=== PATIENT | female | born 1985 | race Caucasian/White ===

== ENCOUNTER → 2021-11-24 07:32 | Outpatient (CLI) | payer OTHER, SELFPAY ==
[2021-11-24 13:56] LABS: Influenza Control Positive
[2021-11-24 22:40] LABS: SARS-CoV-2 RNA PCR Positive
== END ==
PROVIDERS: PCP Family Medicine; Visit Provider Physician Assistant
DX: U07.1 COVID-19 (principal); R51.9 Headache, unspecified; R05.9 Cough, unspecified; R68.89 Other general symptoms and signs
CPT/HCPCS: 87804; C9803; U0003; U0005

== ENCOUNTER 2023-09-14 18:42 | Emergency (ER) | payer BC, SELFPAY ==
[2023-09-14 18:53] VITALS: BP 125/79; PULSE 70; RESP 16; TEMP 36.3; O2SAT 100
--- NOTE | 2023-09-14 18:54 | ED.EAR ---
HPI - Ear Problem General Chief complaint: Ear Stated complaint: Ear clogged Time Seen by Provider: 09/14/23 18:55 Source: patient, RN notes reviewed and old records reviewed Mode of arrival: ambulatory Limitations: no limitations History of Present Illness HPI Narrative: 37-year-old female with a foreign body in left ear since Friday, 4 days. States she was using 1 of those ear wax remover that is connected to your phone, came off and is In her left ear. No decreased hearing. No dizziness. No ear pain just feels like there is something in it. Has been trying to flush it with peroxide with no relief Related Data Allergies Allergy/AdvReac Type Severity Reaction Status Date / Time No Known Allergies Allergy Unverified 05/08/23 09:45 Review of Systems Review of Systems: All systems reviewed & are unremarkable except as noted in HPI and below Constitutional: Constitutional: Reports no additional constitutional complaints Eyes: Eyes: Reports no additional eye complaints ENT: Reports as per HPI and Reports other ( foreign body left ear) Cardiovascular: Cardiovascular: Reports no additional cardiovascular complaints, Denies chest pain and Denies dyspnea Respiratory: Respiratory: Reports no additional respiratory complaints, Denies chest congestion, Denies cough and Denies dyspnea Gastrointestinal: Gastrointestinal: Reports no additional gastrointestinal complaints, Denies abdominal pain, Denies nausea and Denies vomiting Musculoskeletal: Musculoskeletal: Reports no additional musculoskeletal complaints Integumentary/Breasts: Skin/Breast: Reports system reviewed and no additional complaints, except as docu Neurologic: Reports system reviewed and no additional complaints, except as documented Psychiatric: Psychiatric: Reports no additional psychiatric complaints Allergic/Immunologic: Allergic/Immunologic: Reports no additional allergic/immunologic complaints [facility] Past Medical History Medical History Dizziness Social History Social History Smoking status: Never smoker Second hand tobacco smoke exposure: No Alcohol intake: never Substance use: never Substance use type: does not use Living arrangements: with family Occupation/Education: occupation Gender identity (if verbalized by the patient): Female Sexual Orientation (if Verbalized by the Patient): Straight or Heterosexual Comments At the time of my signature, I reviewed and agree with the nursing past medical, surgical, social, and family history. There is no relevant family history pertinent to the patient complaint. Exam Const: General: cooperative, healthy appearing, comfortable, no acute distress, well developed, alert and well nourished Nutritional Appearance: well nourished Orientation/consciousness: patient oriented x3 Limitations: no limitations HENMT: Head: normal to inspection Ears: hearing grossly normal bilaterally, external ears normal, TM's normal bilaterally, mastoids normal, no periauricular adenopathy and Abnormal EAC present foreign body on the left Face/Nose/Sinus: Normal external nose present, Normal nares present, Normal nasal mucous membranes and turbinates present, normal facial exam and face symmetric Face and sinus: normal facial exam and face symmetric Mouth: Yes Normal oral and palatal mucosa present, Yes lip normal and Yes moist mucous membranes Throat: posterior oropharynx normal and uvula midline Eyes: General: appearance normal, both eyes and all related structures Alignment and Position: alignment normal Periorbital: periorbital findings normal Pupils: Equal, round and reactive pupils present EOM: EOMs intact bilaterally Neck: Neck: normal visual inspection, full ROM, no lymphadenopathy and no meningeal signs Chest: Chest palpation & inspection: normal inspection of the chest Resp: Effort & In
== END 2023-09-14 19:05 | disposition home or self-care (01) ==
PROVIDERS: Emergency Provider Nurse Practitioner; PCP Family Medicine
DX: T16.2XXA Foreign body in left ear, initial encounter (principal); W44.B0XA Plastic object unspecified, entering into or through a natural orifice, initial encounter
CPT/HCPCS: 69200; 99212; G0463

== ENCOUNTER 2024-03-30 11:13 | Observation (INO) | payer BC, SELFPAY ==
--- NOTE | ~2024-03-30 | CT_ITS ---
EXAMINATION: CT abdomen pelvis w con DATE: 03/30/2024 13:22 INDICATION: Left lower quadrant abdominal pain TECHNIQUE: Computed tomography (CT) of the abdomen and pelvis was performed with 100 mL Omnipaque-350 intravenous contrast. Automated exposure control and iterative reconstruction technique were employe d. The dose-length product was 760.09 mGy-cm. COMPARISON: None FINDINGS: Lung bases are clear. Heart size is normal. No pericardial or pleural effusion. Liver, gallbladder, s pleen, pancreas, bilateral adrenal glands and kidneys are normal. There is fluid throughout the colon consistent with diarrhea. There is wall thickening at the sigmoid colon most prominent at the midpor tion of the sigmoid colon where there are a few foci of extraluminal gas in the sigmoid mesentery whi ch could be due to focal colitis or more likely diverticulitis with microperforation. No abscess or m ore remote free intraperitoneal gas. Small bowel and appendix are normal. Bladder, anteverted uterus and left adnexa are unremarkable. 1.6 cm peripherally enhancing right ovarian likely corpus luteum cy st. No pathologically enlarged abdominal or pelvic lymphadenopathy. Mild lower thoracic spondylosis. IMPRESSION: 1. Diverticulitis versus less likely focal sigmoid colitis with microperforation and minimal amount o f extraluminal gas in the immediately adjacent sigmoid mesentery. If not recently performed. would re commend follow-up colonoscopy when clinically improved to exclude yet further less likely perforated colon cancer. Reviewed, dictated and finalized at location B. IMPRESSION: 1. Diverticulitis versus less likely focal sigmoid colitis with microperforatio n and minimal amount of extraluminal gas in the immediately adjacent sigmoid me sentery. If not recently performed. would recommend follow-up colonoscopy when clinically improved to exclude yet further less likely perforated colon cancer.
[2024-03-30 11:48] LABS: Basophils Percent Auto 0.2 % (0.2-1.2); Hematocrit 42.5 % (37.0-47.0); Hemoglobin 13.7 g/dL (12.0-15.0); Immature Granulocyte Absolute 0.13 K/mm3 (0.00-0.031); Immature Granulocyte Percent A 0.6 % (0-0.5); Lymphocytes Percent Auto 4.1 % (18.3-44.2); Mean Corpuscular HGB Conc 32.2 g/dl (32-36); Mean Corpuscular Hemoglobin 29.7 pg (26-34); Mean Platelet Volume 11.6 fl (7.4-10.4); Monocytes Absolute Auto 1.8 K/mm3 (0.1-0.6); Monocytes Percent Auto 8.3 % (2.6-8.5); Neutrophils Absolute Auto 18.9 K/mm3 (1.3-6.7); Neutrophils Percent Auto 86.8 % (45.5-73.1); Platelet Count Result 244 k/mm3 (150-375); Red Blood Count 4.62 M/mm3 (4.2-5.4); Red Cell Distribution Width 13.5 % (11.5-14.5); White Blood Count 21.8 K/mm3 (4.5-10.0)
[2024-03-30 12:07] LABS: Alanine Aminotransferase 49 U/L (6-35); Albumin Level 4.3 g/dL (3.5-5.1); Alkaline Phosphatase 94 U/L (38-126); Anion Gap 10 mmol/L (4-12); Aspartate Amino Transferase 29 U/L (14-36); Bilirubin,Total 0.9 mg/dL (0.2-1.3); Blood Urea Nitrogen 12 mg/dL (7-17); Calcium 9.5 mg/dL (8.4-10.2); Carbon Dioxide 22 mmol/L (22-30); Chloride 105 mmol/L (98-107); Estimated CRCL calculation 102 ml/min; Estimated Glomerular Filt Rate > 60; Glucose 132 mg/dL (65-110); Lipase 32 U/L (23-300); Potassium 3.7 mmol/L (3.4-5.0); Sodium 137 mmol/L (137-145)
[2024-03-30 12:22] LABS: Appearance Urine Turbid (Clear); Bacteria Urine 4+ /hpf; Bilirubin Urine 2+ (Negative); Blood Urine 1+ (Negative); Color Urine Dark Yellow (Yellow); Glucose Urine UA Negative (Negative); Ketones Urine 1+ mg/dL (Negative); Leukocyte Esterase Ur Trace LEU/UL (Negative); Nitrate Urine Negative (Negative); Non Pathogenic Casts 0-2; Protein Urine 1+ mg/dL (Negative); Specific Grav Ur 1.027 (1.001-1.035); Squamous Epithelial Cell Urine Many /hpf (Few); pH Urine 5.5 (5.0-9.0)
--- NOTE | 2024-03-30 12:42 | ED.ABDPAIN ---
HPI - Abdominal Pain General Chief Complaint: Abdominal Pain Stated Complaint: abd pain Time Seen by Provider: 03/30/24 12:12 History of Present Illness HPI narrative: 38-year-old female presents emergency department for evaluation of lower abdominal pain. Patient states that she was having some increased left lower quadrant and suprapubic abdominal pain yesterday. Patient reports decreased bowel movements. Patient states he did take some stool softener and had a small amount of stool today. Patient denies any prior history of abdominal surgeries. Related Data Home Medications Medication Instructions Recorded Confirmed sertraline 50 mg tablet 100 mg PO DAILY 03/30/24 03/30/24 Allergies Allergy/AdvReac Type Severity Reaction Status Date / Time No Known Allergies Allergy Verified 03/30/24 11:30 Review of Systems Review of Systems: All systems reviewed & are unremarkable except as noted in HPI and below PMFSH Past Medical History Medical History Depression with anxiety Dizziness Surgical History Surgical History No pertinent past surgical history Family History Family History (Updated 03/30/24 @ 15:07 by LIMA Sevilla) Mother Diverticulitis Other Heart disease Social History Social History Social History: Single Smoking status: Never smoker Second hand tobacco smoke exposure: No Alcohol intake: never Substance use: never Substance use type: does not use Do You Feel Safe in your Home?: Yes Lack of Transportation: No Lack of Food: Never True Current Housing: I Have Housing Concerned About Future Housing: No Difficulty Paying Gas/Electric Bills: No Difficulty Paying for Meds: No Currently Unemployed: No Education: High School Diploma/GED Difficulty w/ Childcare or Family Care: No Living arrangements: with family Occupation/Education: occupation 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 HEAD: normocephalic, atraumatic. EYES: PERRLA/EOMI, conjunctivae clear. NOSE: Normal no drainage EARS:TMS clear with good light reflex. THROAT: Pharynx clear, no exudate. NECK: Supple. No adenopathy, no masses. RESPIRATORY: Airway patent, respirations nonlabored. Clear to auscultation bilaterally, no rales, rhonchi, wheezing. CARDIOVASCULAR: Regular rate and rhythm without murmurs rubs or gallops. ABDOMINAL: Left lower quadrant tenderness to palpation MUSCULOSKELETAL: Moves all extremities. Strength/ROM intact, No edema, No calf tenderness. NEURO: Alert. Cranial nerves II through XII intact. Good gait. Good coordination SKIN: Warm, dry. Normal Color Course Vital Signs Vital signs: Vital Signs Temperature 99.2 F 03/30/24 15:23 Pulse Rate 99 03/30/24 15:23 Respiratory Rate 20 03/30/24 15:23 Blood Pressure 127/73 03/30/24 15:23 Pulse Oximetry 99 03/30/24 15:23 Temperature 99.2 F 03/30/24 15:23 Pulse Rate 99 03/30/24 15:23 Respiratory Rate 20 03/30/24 15:23 Blood Pressure 127/73 03/30/24 15:23 Pulse Oximetry 99 03/30/24 15:23 Oxygen Delivery Room Air 03/30/24 16:00 MDM - Abdominal Pain MDM Narrative Medical decision making narrative: 38-year-old female present to the emergency department for evaluation of lower abdominal pain. Patient is afebrile but does have a leukocytosis of 21.8 a stable hemoglobin of 13.7. No significant electrolyte abnormalities on the patient's CMP patient also has a normal lipase. Urine culture is pending. CT was concerning for diverticulitis with microperforation
[2024-03-30 12:43] LABS: Add Urine Microscopic? YES
[2024-03-30] MEDS: SODIUM CHLORIDE 0.9% IV 1,000 ML 999 ML IV CONT (12:59)
--- NOTE | 2024-03-30 14:33 | PM.IMHP ---
H&P: HPI History of Present Illness Date/Time: 03/30/24 14:33 Chief Complaint: Abdominal pain Narrative: This is a 38 year old woman who presented to the ER with complaints of abdominal pain x 1 day. She woke up yesterday with LLQ pain. She thought she was constipated as the pain was initially mild. She took a stool softener and had a bowel movement today without relief. Her pain has progressively became more severe over the past 24 hours and she decided to come to the ER for evaluation. Workup showed leukocytosis with WBC count 21,000. CT abdomen/pelvis showed sigmoid diverticulitis vs colitis with microperforation. The ED provider consulted our office and she is now seen in the ER. Vital signs stable and afebrile. No previous abdominal surgeries. Denies history of diverticulitis or colonoscopy. She has family history of diverticulitis in her mother. No family history of colorectal cancer. Review of Systems Review of Systems: All systems reviewed & are unremarkable except as noted in HPI and below PMFSH Past Medical History Medical History Depression with anxiety Dizziness Surgical History Surgical History No pertinent past surgical history Family History Family History (Updated 03/30/24 @ 15:07 by LIMA Sevilla) Mother Diverticulitis Other Heart disease Social History Social History Social History: Single Smoking status: Never smoker Second hand tobacco smoke exposure: No Alcohol intake: never Substance use: never Substance use type: does not use Do You Feel Safe in your Home?: Yes Lack of Transportation: No Lack of Food: Never True Current Housing: I Have Housing Concerned About Future Housing: No Difficulty Paying Gas/Electric Bills: No Difficulty Paying for Meds: No Currently Unemployed: No Education: Don't Know Difficulty w/ Childcare or Family Care: No Living arrangements: with family Occupation/Education: occupation 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 Gender identity (if verbalized by the patient): Female Sexual Orientation (if Verbalized by the Patient): Straight or Heterosexual Meds Home Medications and Allergies Home Medications Medication Instructions Recorded Confirmed Type alprazolam 0.25 mg tablet 0.25 mg PO BID PRN anxiety #20 tabs 12/22/23 01/12/24 Rx sertraline 50 mg tablet 50 mg PO DAILY #30 tabs 01/12/24 01/12/24 Rx Allergies Allergy/AdvReac Type Severity Reaction Status Date / Time No Known Allergies Allergy Verified 03/30/24 11:30 Exam Const: General: comfortable and no acute distress Nutritional Appearance: overweight Orientation/consciousness: patient oriented x3 HENMT: Head: normocephalic and atraumatic Ears: hearing grossly normal bilaterally Mouth: Yes moist mucous membranes Eyes: General: appearance normal, both eyes and all related structures Pupils: Equal, round and reactive pupils present Neck: Neck: normal visual inspection and full ROM Resp: Effort & Inspection: no respiratory distress Auscultation: clear to auscultation bilaterally Cardio: Rate: regular rate Rhythm: regular rhythm Heart sounds: S1 normal heart sound present and S2 normal heart sound present Peripheral pulses: Peripheral pulses 2+ throughout GI: Inspection: non-distended and no scars GI Palp: Yes Soft to palpation, Yes Tenderness to palpation present (GI) (mild LLQ tenderness), No Guarding due to palpation present (GI) and No Rebound tenderness present Percussion: Yes normal to percussion Auscultation: normal bowel sounds Skin: General skin exam: normal color Neuro: General: moves all extremities and no focal motor deficits Speech: normal speech Motor exam (neuro): 5/5 motor strength present throughout Extrem: General: normal to inspection a
[2024-03-30] MEDS: metroNIDAZOLE 500 MG/ISO 100ML 500 MG/100 ML BAG 100 MG IVPB ×2 (14:53→21:25)
[2024-03-30 15:23] VITALS: BP 127/73; PULSE 99; RESP 20; TEMP 37.3; O2SAT 99
--- NOTE | 2024-03-30 15:34 | PC.NURSE ---
patient transferred to floor with flagyl infusing
[2024-03-30 15:43] VITALS: BMI 28.6
--- NOTE | 2024-03-30 15:43 | ADMGEN ---
This patient, Korin Becker, was admitted to Medical Room 245-. Patient/family oriented to hospital policies and general routines including ID bracelet, bed and alarms, visiting hours, pain management, procedures, bathroom and other care routines, personal items, smoking policy, room service/diet, and visiting hours. Information on how to activate the Rapid Response Team has been discussed. Patient/Family are encouraged to report perceived risks to care and to ask questions if they do not understand what they are told or what they should do.
[2024-03-30] MEDS: SODIUM CHLORIDE 0.9% IV 1,000 ML 125 ML IV CONT (16:06)
[2024-03-30] MEDS: IBUPROFEN IV 800 MG/200 ML 800 MG/200 ML BAG 400 MG IVPB (16:47)
[2024-03-30 19:29] VITALS: PULSE 99; RESP 20; O2SAT 99
[2024-03-30 22:24] VITALS: BP 123/68; PULSE 100; RESP 16; TEMP 36.4; O2SAT 98
[2024-03-31] MEDS: SODIUM CHLORIDE 0.9% IV 1,000 ML 125 ML IV CONT (02:46)
[2024-03-31 05:04] LABS: Basophils Absolute Auto 0.1 K/mm3 (0.0-0.1); Basophils Percent Auto 0.3 % (0.2-1.2); Hematocrit 37.4 % (37.0-47.0); Hemoglobin 11.6 g/dL (12.0-15.0); Immature Granulocyte Absolute 0.12 K/mm3 (0.00-0.031); Immature Granulocyte Percent A 0.6 % (0-0.5); Lymphocytes Percent Auto 4.3 % (18.3-44.2); Mean Corpuscular Hemoglobin 29.1 pg (26-34); Monocytes Absolute Auto 1.7 K/mm3 (0.1-0.6); Monocytes Percent Auto 8.9 % (2.6-8.5); Neutrophils Absolute Auto 16.1 K/mm3 (1.3-6.7); Neutrophils Percent Auto 85.9 % (45.5-73.1); Platelet Count Result 199 k/mm3 (150-375); Red Blood Count 3.98 M/mm3 (4.2-5.4); Red Cell Distribution Width 13.6 % (11.5-14.5); White Blood Count 18.7 K/mm3 (4.5-10.0)
[2024-03-31 05:18] LABS: Anion Gap 6 mmol/L (4-12); Blood Urea Nitrogen 8 mg/dL (7-17); Carbon Dioxide 24 mmol/L (22-30); Chloride 107 mmol/L (98-107); Estimated CRCL calculation 117 ml/min; Estimated Glomerular Filt Rate > 60; Glucose 99 mg/dL (65-110); Potassium 3.7 mmol/L (3.4-5.0); Sodium 137 mmol/L (137-145)
[2024-03-31] MEDS: metroNIDAZOLE 500 MG/ISO 100ML 500 MG/100 ML BAG 100 MG IVPB ×3 (05:38→23:20)
[2024-03-31 05:44] VITALS: BP 118/59; PULSE 101; RESP 18; TEMP 36.4; O2SAT 97
[2024-03-31 07:49] VITALS: O2SAT 98
--- NOTE | 2024-03-31 09:45 | PM.PNGS ---
Progress Note: A&P Assessment and Plan (1) Diverticulitis of colon with perforation: Code(s): K57.20 - Diverticulitis of large intestine with perforation and abscess without bleeding Status: Acute Assessment and Plan: Clinically improving with IV antibiotics. Will advance to full liquids and start advancing diet as tolerated. Stop IV fluids. Consult dietitian for education on low vs high fiber diet. Continue IV antibiotics. Will adjust pain medication. Hopefully discharge on oral antibiotics later this evening or tomorrow if she continues to improve. Plan I have discussed the patient's case and plan of care with Dr. Treadwell. Subjective Subjective Date/Time Seen: 03/31/24 09:45 Patient reports: no new complaints, feels better, tolerating liquids well, flatus, bowel movement and afebrile Interval history: Feeling better today. Abdominal pain has improved some. Still had IV Dilaudid overnight, but does not have much relief from the Dilaudid. Reports ibuprofen helps with her pain better. No nausea or vomiting. She has had 2 bowel movements since admission, no blood in stools. Review of Systems Review of Systems: All systems reviewed & are unremarkable except as noted in HPI and below Exam Const: General: comfortable and no acute distress GI: Inspection: non-distended GI Palp: Yes Soft to palpation, Yes Tenderness to palpation present (GI) (LLQ), Yes Guarding due to palpation present (GI) (LLQ), Yes No hepatosplenomegaly present, No Hernia present and No Rebound tenderness present Auscultation: normal bowel sounds Objective Data Vital Signs Vital Signs: Vital Signs - 24 hr 03/30/24 15:23 03/30/24 16:00 03/30/24 19:29 Temperature 99.2 F Pulse Rate 99 99 Respiratory Rate 20 20 Blood Pressure 127/73 Pulse Oximetry 99 99 Oxygen Delivery Room Air Room Air 03/30/24 22:24 03/31/24 05:44 03/31/24 07:49 Temperature 97.6 F 97.6 F Pulse Rate 100 101 H Respiratory Rate 16 18 Blood Pressure 123/68 118/59 L Pulse Oximetry 98 97 98 Oxygen Delivery Room Air Intake/Output Intake/Output: Intake & Output 03/28/24 03/29/24 03/30/24 03/31/24 23:59 23:59 23:59 23:59 Intake Total 2380 1500 Balance 2380 1500 Meds/Results Medications: Active Medications Generic Name Dose Route Start Last Admin Trade Name Freq PRN Reason Stop Dose Admin Acetaminophen 1,000 mg 03/31/24 08:44 Acetaminophen 500 Mg Tablet PO Q6H PRN Mild Pain (1-3) or Fever Alprazolam 0.25 mg 03/31/24 08:44 Alprazolam (*Crx) 0.25 Mg Tablet PO BID PRN anxiety Hydromorphone HCl 0.5 mg 03/30/24 14:27 Hydromorphone Hcl Inj (*Crx) 1 Mg/Ml Syr IV PUSH Q4H PRN Pain Rated 7-10 Ceftriaxone Sodium 1 gm in 50 mls @ 100 mls/hr 03/31/24 09:00 Rocephin 1 Gm/Ns 50 Ml IVPB Q24H ALANA Metronidazole 500 mg in 100 mls @ 100 mls/hr 03/30/24 22:00 03/31/24 05:38 Flagyl 500 Mg/Iso Soln 100 Ml IVPB 100 mls/hr Q8HR ALANA Administration Sodium Chloride 1,000 mls @ 125 mls/hr 03/30/24 14:30 03/31/24 02:46 Normal Saline Iv IV CONT 125 mls/hr .Q8H ALANA Administration Ibuprofen 800 mg in 200 mls @ 400 mls/hr 03/30/24 15:06 03/30/24 17:17 Caldolor 800 Mg/200 Ml IVPB Infused Q6H PRN Infusion Pain Rated 4-6 Ondansetron HCl 4 mg 03/30/24 14:27 Ondansetron Inj 4 Mg/2 Ml Vial IV PUSH Q4H PRN Nausea Sertraline HCl 100 mg 03/31/24 09:00 Sertraline Hcl 50 Mg Tablet PO DAILY ALANA Radiology Results: ITS Impressions Abdomen/Pelvis CT 03/30/24 13:33 IMPRESSION: 1. Diverticulitis versus less likely focal sigmoid colitis with microperforation and minimal amount of extraluminal gas in the immediately adjacent sigmoid mesentery. If not recently performed. would recommend follow-up colonoscopy when clinically improved to exclude yet further less likely perforated colon cancer. Labs Labs: Laboratory Results
[2024-03-31] MEDS: SERTRALINE HCL 50 MG TABLET 100 MG PO (10:02)
--- NOTE | 2024-03-31 11:49 | PCDIET ---
Physician consult for low fiber diet vs low fiber diet. See Nutritional Teaching Intervention. Thank you for the consult.
[2024-03-31 13:59] VITALS: BP 113/77; PULSE 112; RESP 18; TEMP 36.9; O2SAT 98
[2024-03-31 19:57] VITALS: BP 116/69; PULSE 93; RESP 16; TEMP 36.5; O2SAT 98
[2024-03-31 20:00] VITALS: PULSE 93; RESP 16; O2SAT 98
[2024-04-01] MEDS: metroNIDAZOLE 500 MG/ISO 100ML 500 MG/100 ML BAG 100 MG IVPB (05:08)
[2024-04-01 06:00] VITALS: BP 116/72; PULSE 83; RESP 16; TEMP 36.2; O2SAT 97
[2024-04-01] MEDS: SERTRALINE HCL 50 MG TABLET 100 MG PO (08:52)
[2024-04-01] MEDS: ACETAMINOPHEN 500 MG TABLET 1000 MG PO (08:55)
[2024-04-01 09:44] LABS: Basophils Percent Auto 0.3 % (0.2-1.2); Eosinophils Percent Auto 0.3 % (0-4.4); Hematocrit 35.2 % (37.0-47.0); Hemoglobin 11.5 g/dL (12.0-15.0); Immature Granulocyte Absolute 0.04 K/mm3 (0.00-0.031); Immature Granulocyte Percent A 0.4 % (0-0.5); Lymphocytes Absolute Auto 0.81 K/mm3 (0.9-3.2); Lymphocytes Percent Auto 8.6 % (18.3-44.2); Mean Corpuscular HGB Conc 32.7 g/dl (32-36); Mean Corpuscular Hemoglobin 29.7 pg (26-34); Mean Platelet Volume 11.3 fl (7.4-10.4); Monocytes Absolute Auto 0.7 K/mm3 (0.1-0.6); Monocytes Percent Auto 7.7 % (2.6-8.5); Neutrophils Absolute Auto 7.8 K/mm3 (1.3-6.7); Neutrophils Percent Auto 82.7 % (45.5-73.1); Platelet Count Result 228 k/mm3 (150-375); Red Blood Count 3.87 M/mm3 (4.2-5.4); Red Cell Distribution Width 13.6 % (11.5-14.5); White Blood Count 9.5 K/mm3 (4.5-10.0)
[2024-04-01 09:51] LABS: Anion Gap 9 mmol/L (4-12); Blood Urea Nitrogen 6 mg/dL (7-17); Calcium 8.4 mg/dL (8.4-10.2); Carbon Dioxide 22 mmol/L (22-30); Chloride 107 mmol/L (98-107); Estimated CRCL calculation 117 ml/min; Estimated Glomerular Filt Rate > 60; Glucose 168 mg/dL (65-110); Potassium 3.1 mmol/L (3.4-5.0); Sodium 138 mmol/L (137-145)
[2024-04-01 14:00] VITALS: BP 118/70; PULSE 80; RESP 16; TEMP 36.4; O2SAT 94
--- NOTE | 2024-04-01 14:41 | PM.DS ---
DS: Admitting Diagnosis Discharge Date 04/01/2024 Admitting Diagnosis complicated diverticulitis with micro perforation DS: Discharge Diagnosis Discharge Diagnosis (1) Diverticulitis of colon with perforation: Code(s): K57.20 - Diverticulitis of large intestine with perforation and abscess without bleeding Status: Acute Assessment and Plan: doing well with conservative management, home with p.o. antibiotics and low-fiber diet, follow-up 2 weeks, will need interval colonoscopy DS: Summary Hospital Course Reason for hospitalization: complicated diverticulitis with micro perforation Hospital Course: The patient is a 38-year-old female presenting to the emergency department complaining of lower abdominal pain. The patient had a workup including CT scan showing complicated diverticulitis with micro perforation. The patient was noted to have a moderate leukocytosis. Given these findings, the patient was admitted to the surgical service for further management. The patient was started on antibiotics and bowel rest. Over her hospital course, her abdominal pain she largely resolved. She was having largely normal bowel function. We slowly advanced her diet and she was able to tolerate a low-fiber diet at the time of discharge. She will now be sent home with p.o. antibiotics. She will follow-up with me in 2 weeks. She will need to have an interval colonoscopy. Status at Discharge Functional status at discharge: independent ambulation Overall status at discharge: patient is progressing back to baseline Time Spent with Patient Time attestation: Total time spent providing and/or coordinating discharge services: Time spent: Less than 30 minutes Exam Const: General: cooperative, comfortable and no acute distress Resp: Auscultation: clear to auscultation bilaterally Cardio: Rate: regular rate Rhythm: regular rhythm GI: Inspection: normal to inspection and non-distended GI Palp: No abdominal tenderness and Yes Soft to palpation DS: Data Data Completed and Pending Labs on day of discharge: Labs from last 24 hours 04/01/24 09:21 WBC 9.5 RBC 3.87 L Hgb 11.5 L Hct 35.2 L MCV 91.0 MCH 29.7 MCHC 32.7 RDW 13.6 Plt Count 228 MPV 11.3 H Immature Gran % (Auto) 0.4 Neut % (Auto) 82.7 H Lymph % (Auto) 8.6 L Barnes % (Auto) 7.7 Eos % (Auto) 0.3 Baso % (Auto) 0.3 Lymph # (Auto) 0.81 L Barnes # (Auto) 0.7 H Eos # (Auto) 0.0 Baso # (Auto) 0.0 Abs Immat Gran (auto) 0.04 H Absolute Neuts (auto) 7.8 H Absolute Nucleated RBC 0.000 Nucleated RBC % 0.0 Sodium 138 Potassium 3.1 L Chloride 107 Carbon Dioxide 22 Anion Gap 9 BUN 6 L Creatinine 0.60 L Estim Creat Clear Calc 117 Estimated GFR > 60 Glucose 168 H Calcium 8.4 Preliminary micro results at discharge 03/30/24 14:18 Blood Culture - Preliminary Blood 03/30/24 14:18 Blood Culture - Preliminary Blood Discharge Plan Discharge Attending physician on discharge: Ca Treadwell Consulting providers: aC Treadwell Discharging Clinician: Ca Treadwell Anticipated Discharge Date/Time: 04/01/24 14:39 Patient Disposition: Home, Self-Care Activity: as tolerated Diet: low fiber Patient Instructions: Antibiotic Form Stand Alone Forms: General Discharge Information Follow-up/Referrals: Ca Treadwell MD [Physician] - 2 Weeks Discharge Medications: New ciprofloxacin HCl [Cipro] 500 mg tablet 500 mg PO Q12H Qty: 14 0RF metronidazole [Flagyl] 375 mg capsule 375 mg PO Q12H Qty: 14 0RF Continued alprazolam 0.25 mg tablet 0.25 mg PO BID PRN (Reason: anxiety) Qty: 20 0RF sertraline 50 mg tablet 100 mg PO DAILY Date of admission: 03/30/24 14:27 Primary Care Provider: Say Shaffer Admitting Provider: Aysha Rosales Attending physician on admission: Aysha Rosales Condition: Serious
== END 2024-04-01 15:18 | disposition home or self-care (01) ==
LOC: ANHED 13:50 → ANH2MED 16:47
PROVIDERS: Nurse Practitioner Family; Admitting Provider Surgery; Emergency Provider Emergency Medicine; PCP Family Medicine; Visit Provider Surgery
DX: K57.20 Diverticulitis of large intestine with perforation and abscess without bleeding (principal); F41.8 Other specified anxiety disorders; R82.90 Unspecified abnormal findings in urine
CPT/HCPCS: 36415; 74177; 80048; 80053; 81001; 81025; 83690; 85025; 87040; 87086; 87088; 96361; 96365; 96366; 96367; 96375; 96376; 99285; A9270; G0378; J0696; J1741; J1836; J7030; Q9967

== ENCOUNTER 2024-06-30 16:14 | Outpatient (CLI) | payer BC, SELFPAY ==
--- NOTE | ~2024-06-30 | US_ITS ---
EXAMINATION: US thyroid DATE: 06/30/2024 16:48 INDICATION: Nontoxic single thyroid nodule. TECHNIQUE: Multiple ultrasound images of the thyroid were obtained. COMPARISON: None. FINDINGS: The right thyroid lobe measures 5.1 x 1.7 x 3.0 cm. The left thyroid lobe measures 5.3 x 1.2 x 1.4 c m. In the thyroid isthmus, there is a 9 mm solid, hypoechoic, wider than tall nodule with smooth mar gin without echogenic foci (TI-RADS TR4). In the left thyroid lobe, there is an 11 mm solid, hypoecho ic, wider than tall nodule with lobulated margins without echogenic foci (TR4). In the left thyroid l obe, there is a 16 mm mixed cystic and solid, isoechoic, wider than tall nodule with ill-defined radha in without echogenic foci (TR2). In the right thyroid lobe, there is a 2.8 cm solid, isoechoic, wider than tall nodule with smooth margin without echogenic foci (TR3). IMPRESSION: 1. Multinodular goiter. Ultrasound-guided fine-needle aspiration of the 2.8 cm right thyroid nodule i s recommended. Reviewed, dictated and finalized at location A. IMPRESSION: 1. Multinodular goiter. Ultrasound-guided fine-needle aspiration of the 2.8 cm right thyroid nodule is recommended.
== END 2024-06-30 16:15 | disposition home or self-care (01) ==
PROVIDERS: PCP Family Medicine; Visit Provider Family Medicine
DX: E04.2 Nontoxic multinodular goiter (principal)
CPT/HCPCS: 76536

== ENCOUNTER 2024-08-21 07:14 | Outpatient (CLI) | payer BC, SELFPAY ==
--- NOTE | ~2024-08-21 | MM_ITS ---
EXAMINATION: MM screening janice BI w reynold HISTORY: Baseline Screening TECHNIQUE: Craniocaudal and mediolateral oblique 3-D tomosynthesis images were obtained and synthetic 2-D images were generated. CAD analysis was submitted and interpreted. COMPARISON: None. Today's study will serve as a baseline evaluation. BREAST PARENCHYMAL COMPOSITION: There are scattered areas of fibroglandular density. FINDINGS: No suspicious microcalcifications, architectural distortion, discrete masses or significant asymmetry . IMPRESSION: 1. No mammographic or tomographic evidence to suggest malignancy. 2. Recommend routine screening mammography in one year. BI-RADS Category 1: Negative Reviewed, dictated and finalized at location A.
== END 2024-08-21 07:15 | disposition home or self-care (01) ==
LOC: ANHIMG 07:15
PROVIDERS: PCP Family Medicine; Visit Provider Physician Assistant Medical
DX: Z12.31 Encounter for screening mammogram for malignant neoplasm of breast (principal)
CPT/HCPCS: 77063; 77067

== ENCOUNTER 2024-09-13 12:24 | Outpatient (CLI) | payer BC, SELFPAY ==
--- NOTE | ~2024-09-13 | US_ITS ---
EXAMINATION: US FNA w image guidance, US FNA additional DATE: 09/13/2024 14:00 INDICATION: Thyroid nodules TECHNIQUE: A time-out was performed to verify the patient's name, date of , and procedure to be performed . The procedure and its benefits and risks were discussed with the patient. Risks specifically discus sed included bleeding and infection. The patient understood the risks and agreed to proceed. The neck was prepped and draped in the usual sterile manner. 5 mL 1% lidocaine was used for local anesthesia . Attention was first turned to the previously identified 2.8 cm TI RADS 3 nodule in the mid right th yroid lobe. 6 passes were made with a 25G needle into the lesion. Appropriate needle location was do cumented with continuous sonographic guidance. Attention was then turned to a 3.1 cm TI RADS 4 nodule arising from the inferior right thyroid lobe. 7 passes were made with a 25G needle into the lesion. Appropriate needle location was documented with continuous sonographic guidance. A sterile bandage w as applied. There were no immediate complications. FINDINGS: Grayscale ultrasound images demonstrate biopsy needles advanced into first a 2.8 cm TI-RADS 3 nodule in the mid right thyroid lobe. With machine milker imaging a second slightly larger 3.1 cm wider than tall alix id hypoechoic nodule smooth margins (TI-RADS 4, moderately suspicious , FNA if >=1.5 cm, annual follo wup is >=1 cm) was identified arising in pedunculated fashion off the lower pole of the right thyroid lobe. Given the larger size and higher grading was elected to also biopsied this nodule. Ultrasound images demonstrate biopsy needle subsequently advanced into this second nodule. IMPRESSION: 1. Successful ultrasound-guided fine needle aspiration of a previous identified 2.8 cm TI-RADS 3 nod ule at the mid right thyroid lobe. 2. Successful ultrasound-guided fine-needle aspiration of a newly identified 3.1 cm TI-RADS 4 peduncu lated nodule arising from the inferior right thyroid lobe. Reviewed, dictated and finalized at location A. IMPRESSION: 1. Successful ultrasound-guided fine needle aspiration of a previous identifie d 2.8 cm TI-RADS 3 nodule at the mid right thyroid lobe. 2. Successful ultrasound-guided fine-needle aspiration of a newly identified 3. 1 cm TI-RADS 4 pedunculated nodule arising from the inferior right thyroid lobe .
== END 2024-09-13 12:25 | disposition home or self-care (01) ==
LOC: ANHIMG 12:24
PROVIDERS: PCP Family Medicine; Visit Provider Family Medicine
DX: E04.1 Nontoxic single thyroid nodule (principal)
CPT/HCPCS: 10005; 10006; 88172; 88173; 88177; 88305

== ENCOUNTER 2025-07-28 12:56 | Outpatient (CLI) | payer BC, SELFPAY ==
--- NOTE | ~2025-07-28 | US_ITS ---
EXAMINATION: US thyroid DATE: 07/28/2025 14:19 INDICATION: Nontoxic multinodular goiter TECHNIQUE: Multiple ultrasound images of the thyroid were obtained. COMPARISON: 06/30/2024 FINDINGS: The right thyroid lobe measures 5.2 x 2.5 x 2.5 cm. The left thyroid lobe measures 5.8 x 2.1 x 1.9 cm. No significant interval change in a 3.0 cm solid predominantly isoechoic nodule with smooth margins and without echogenic foci in the right thyroid lobe (TI-RADS 3, mildly suspicious , FNA if >=2.5 cm, annual followup is >=1.5 cm). There is a 1.9 cm predominantly solid isoechoic nodules with smooth to ill-defined margins in the mid left thyroid lobe, also TI RADS 3. There is a second 1.3 cm TI RADS 3 nodule with similar imaging features at the inferior left thyroid. Unchanged 1.0 cm solid hypoechoic nodule is wider than tall with smooth margins and without echogenic foci (TI-RADS 4, moderately jaime spicious , FNA if >=1.5 cm, annual followup is >=1 cm) at the right side of the thyroid isthmus. There is an incompletely visualized 1.8 cm pedunculated solid hypoechoic nodule with smooth margins and without echogenic foci which extends deep and inferiorly from the lower pole of the right thyroid lobe on the images, the visualized portion measuring up to 1.9 cm in maximal diameter. This was also not identified on the prior study but was identified and biopsied on intervening study dated 09/13/2024 with pathology read as nondiagnostic and with isolated) of glandular cells suggestive of parathyroid origin. IMPRESSION: 1. No significant change in a multinodular goiter, the largest 3.0 cm nodule with interval biopsy on 09/13/2024 consistent with a benign follicular nodule. 2. Incompletely visualized at least 1.9 cm nodule which appears to arise from the deep inferior right thyroid lobe with prior biopsy suggestive of parathyroid origin. Reviewed, dictated and finalized at location A. IMPRESSION: 1. No significant change in a multinodular goiter, the largest 3.0 cm nodule wi th interval biopsy on 09/13/2024 consistent with a benign follicular nodule. 2. Incompletely visualized at least 1.9 cm nodule which appears to arise from t he deep inferior right thyroid lobe with prior biopsy suggestive of parathyroid origin.
--- OUTSIDE RECORDS SUMMARY | 2025-07-28 14:40 | XMS_ITS | Patient Health Record ---
Author Organization [facility] [employer] Address [address] [place] [address] Care Team Providers Care Water Control Supervisor Name Role Phone Say Shaffer MD Primary Care Provider Jose Chavez Unavailable [phone] Myke Christy Unavailable [phone] Allergies No Known Allergies Reason For Referral No Information Medications Medication SIG (Take, Route, Frequency, Duration) Notes Start Date End Date Status Sertraline HCl 100 MG Tablet TAKE 1 TABLET BY MOUTH EVERY DAY FOR 90 DAYS Oral; Duration: 90 Days Not-Taki ng ALPRAZolam 0.25 MG Tablet Oral 03/05/2024 Not-Taking Sertraline HCl 25 MG Tablet 1 tablet Orally Once a day; Duration: 30 days 06/29/2025 Active Social History Tobacco Use: Social History Observation Description Date Details (start date - stop date) Never Smoker NA - NA Sex Assigned At : Social History Observation Description Sex Assigned At Female Social History Miscellaneous: Social Info Question Answer Notes Advance Care Planning Are you your own decision-maker Yes Do you have Power of Service Desk Agent for Health or [facility]? No Drug/Alcohol: Social Info Question Answer Notes AUDIT-C (Standard) Did you have a drink containing alcohol in the past year? No Tobacco Use: Social Info Question Answer Notes Tobacco Control (Standard) Tobacco use: Nonsmoker Additional Details Category Social Info Options Details Migrated Social History Migrated Social History Alcohol Intake: None 01/22/2024,Tobacco Years: Never smoker 12/23/2023 Problems Problem Type SNOMED Code ICD Code Onset Dates Problem Status W/U Status Risk Notes Problem Adjustment disorder with mixed anxiety and depressed mood (061209923) Adjustment disorder with mixed anxiety and depressed mood (F43.23) Active confirmed Problem Insomnia disorder related to another mental disorder (02705072) Insomnia due to other mental disorder (F51.05) Active confirmed Vital Signs Heart Rate 78 /min 06/29/2025 Height-cm 167.64 cm 06/29/2025 Blood pressure diastolic 76 mm Hg 06/29/2025 Weight-kg 109.14 kg 02/02/2025 Height 66 in 06/29/2025 Blood pressure systolic 109 mm Hg 06/29/2025 Weight 240.6 lbs 02/02/2025 BMI 38.83 kg/m2 02/02/2025 Encounters Encounter Location Date Provider Diagnosis [facility] [address] [facility] [address] [place] [address] 08/05/2024 Myke Christy Adjustment disorder with mixed anxiety and depressed mood F43.23 [facility] [place] [id number] [facility] [address] [place] [address] 09/02/2024 Myke Christy Adjustment disorder with mixed anxiety and depressed mood F43.23 [facility] [place] [address] [facility] [address] [place] [address] 09/16/2024 Myke Christy Adjustment disorder with mixed anxiety and depressed mood F43.23 [facility] [address] [address] 10/05/2024 Jose Brambila Adjustment disorder with mixed anxiety and depressed mood F43.23 and Insomnia due to other mental disorder F51.05 [facility] [address] [facility] [address] [place] [address] 01/10/2025 Myke Christy Situational mixed anxiety and depressive disorder F43.23 [facility] [address] [place] [address] 02/02/2025 Jose Brambila Encounter for screen ing for cardiovascular disorders Z13.6 ; Encounter for screening for depression Z13.31 ; Adjustment disorder with mixed anxiety and depressed mood F43.23 and Insomnia due to other mental disorder F51.05 [facility] [address] [place] [address] 02/22/2025 Myke Christy Encounter for screen ing for depression Z13.31 and Adjustment disorder with mixed anxiety and depressed mood F43.[address] [facility] [address] [place] [address] 03/23/2025 Myke Christy Negative depression screening Z13.31 and Adjustment disorder with mixed anxiety and depressed mood F43.[address] [facility] [address] [place] [address] 05/26/2025 Myke Christy Adjustment disorder with mixed anxiety and depressed mood F43.[address] [facility] [address] [place] [address] 06/29/2025 Jose Brambila Adjustment disorder with mixed anxiety and depressed mood F43.23 and Insomnia due to other mental disorder F51.[address] [facility] [address] [place] [address] 06/30/2025 Myke Christy Adjustment disorder with mixed anxiety and depressed mood F43.23 Assessments Encounter Date Diagnosis (ICD Code) Assessment Notes Treatment Notes Treatment Clinical Notes Section Notes 08/05/2024 Adjustment disorder with mixed anxiety and depressed mood (ICD-10 - F43.23) 38 year old single never female seen today for initial assessment to start therapy. Reported that she has seen Josechristian Melgara on two occasions for medication therapy. Client stated that this past November 71 year old mother of suspected cardiac arrest. Noted that she is the one that found mother and has had problems dealing with her . Added a year ago stepfather from stage 4 cancer. She had lived with mother all of her life following bio parents when she was 6 years old. Mother remarried when she was in the 7th grade. Client added that at the age of 12 she entertained suicidal thoughts with plan of cutting wrists. Noted that she was not hospitalized at the time due to not telling anybody. Suicidal thoughts were a result of being angry and sad over bio father's suicide in 1997. Client further stated that following mother's 's she was easily irritated, agitated and frustrated but since she has been on medication it has gotten better. No psych admissions reported but stated following father's she saw a school counselor. Family is positive for depression(mot her).Client born and grew up in [place], [place] to parents who when she was 6 years old. Described childhood as not bad but could have been better. Stated that father was an alcoholic and was police liaison officer for many years up until his in 1997. Relationship with mother growing up was conflicted but it has gotten better the older she has become. Relationship with bio father was close, I was nikita's little girl. Client is single and has never been and has worked at [employer] for 11 years. She currently lives alone and is planning on moving to an apartment. Client is the youngest of four; two sisters and one brother. Stated that she is not close to any of her siblings. 09/02/2024 Adjustment disorder with mixed anxiety and depressed mood (ICD-10 - F43.23) 38 year old single never female seen today for initial assessment to start therapy. Reported that she has seen Jose Brambila on two occasions for medication therapy. Client stated that this past November 71 year old mother of suspected cardiac arrest. Noted that she is the one that found mother and has had problems dealing with her . Added a year ago stepfather from stage 4 cancer. She had lived with mother all of her life following bio parents when she was 6 years old. Mother remarried when she was in the 7th grade. Client added that at the age of 12 she entertained suicidal thoughts with plan of cutting wrists. Noted that she was not hospitalized at the time due to not telling anybody. Suicidal thoughts were a result of being angry and sad over bio father's suicide in 1997. Client further stated that following mother's 's she was easily irritated, agitated and frustrated but since she has been on medication it has gotten better. No psych admissions reported but stated following father's she saw a school counselor. Family is positive for depression(mot her).Client born and grew up in [place], [place] to parents who when she was 6 years old. Described childhood as not bad but could have been better. Stated that father was an alcoholic and was police liaison officer for many years up until his in 1997. Relationship with mother growing up was conflicted but it has gotten better the older she has become. Relationship with bio father was close, I was nikita's little girl. Client is single and has never been and has worked at [employer] for 11 years. She currently lives alone and is planning on moving to an apartment. Client is the youngest of four; two sisters and one brother. Stated that she is not close to any of her siblings. 09/16/2024 Adjustment disorder with mixed anxiety and depressed mood (ICD-10 - F43.23) 38 year old single never female seen today for initial assessment to start therapy. Reported that she has seen Jose Brambila on two occasions for medication therapy. Client stated that this past November69 year old mother of suspected cardiac arrest. Noted that she is the one that found mother and has had problems dealing with her . Added a year ago stepfather from stage 4 cancer. She had lived with mother all of her life following bio parents when she was 6 years old. Mother remarried when she was in the 7th grade. Client added that at the age of 12 she entertained suicidal thoughts with plan of cutting wrists. Noted that she was not hospitalized at the time due to not telling anybody. Suicidal thoughts were a result of being angry and sad over bio father's suicide in 1997. Client further stated that following mother's 's she was easily irritated, agitated and frustrated but since she has been on medication it has gotten better. No psych admissions reported but stated following father's she saw a school counselor. Family is positive for depression(mot her).Client born and grew up in [place], [place] to parents who when she was 6 years old. Described childhood as not bad but could have been better. Stated that father was an alcoholic and was police liaison officer for many years up until his in 1997. Relationship with mother growing up was conflicted but it has gotten better the older she has become. Relationship with bio father was close, I was nikita's little girl. Client is single and has never been and has worked at [employer] for 11 years. She currently lives alone and is planning on moving to an apartment. Client is the youngest of four; two sisters and one brother. Stated that she is not close to any of her siblings. 10/05/2024 Adjustment disorder with mixed anxiety and depressed mood (ICD-10 - F43.23) cont alprazolam 0.25mg prn she stopped Sertraline, felt to numb 1. Depression: - Patient reports discontinuing sertraline due to feeling numb and zombie-like. - Currently, the patient is doing well without the medication. Plan: - Monitor for any signs of depression or anxiety. - If symptoms worsen, consider restarting sertraline at a lower dose or trying an alternative medication. - Schedule a follow-up appointment in 4 months or as needed. 2. Sleep disturbance: - Patient reports sleeping 6-8 hours but not feeling rested. - Recently completed an at-home sleep study, awaiting results. Plan: - Review sleep study results once available and determine appropriate interventions based on findings. - Encourage the patient to maintain good sleep hygiene. 3. Adjustment to living alone: - Patient reports feeling lonely at times after moving out from living with Alem Alvarado. Plan: - Encourage the patient to maintain social connections and engage in activities that promote emotional well-being. - Continue monitoring the patient's adjustment to living alone during follow-up appointments. 4. Ongoing therapy: - Patient reports positive progress in therapy sessions with Myke. Plan: - Encourage the patient to continue attending therapy sessions as needed, especially during periods of increased stress or emotional challenges. Follow-up: - Schedule a follow-up appointment in 4 months or as needed to monitor the patient's mental health and overall well-being. 01/10/2025 Situational mixed anxiety and depressive disorder (ICD-10 - F43.23) 38 year old single never female seen today for initial assessment to start therapy. Reported that she has seen Jose Brambila on two occasions for medication therapy. Client stated that this past November 71 year old mother of suspected cardiac arrest. Noted that she is the one that found mother and has had problems dealing with her . Added a year ago stepfather from stage 4 cancer. She had lived with mother all of her life following bio parents when she was 6 years old. Mother remarried when she was in the 7th grade. Client added that at the age of 12 she entertained suicidal thoughts with plan of cutting wrists. Noted that she was not hospitalized at the time due to not telling anybody. Suicidal thoughts were a result of being angry and sad over bio father's suicide in 1997. Client further stated that following mother's 's she was easily irritated, agitated and frustrated but since she has been on medication it has gotten better. No psych admissions reported but stated following father's she saw a school counselor. Family is positive for depression(mot her).Client born and grew up in [place], [place] to parents who when she was 6 years old. Described childhood as not bad but could have been better. Stated that father was an alcoholic and was police liaison officer for many years up until his in 1997. Relationship with mother growing up was conflicted but it has gotten better the older she has become. Relationship with bio father was close, I was nikita's little girl. Client is single and has never been and has worked at [employer] for 11 years. She currently lives alone and is planning on moving to an apartment. Client is the youngest of four; two sisters and one brother. Stated that she is not close to any of her siblings. 02/02/2025 Encounter for screening for cardiovascular disorders (ICD-10 - Z13.6) 02/22/2025 Adjustment disorder with mixed anxiety and depressed mood (ICD-10 - F43.23) 38 year old single never female seen today for initial assessment to start therapy. Reported that she has seen Jose Brambila on two occasions for medication therapy. Client stated that this past November 71 year old mother of suspected cardiac arrest. Noted that she is the one that found mother and has had problems dealing with her . Added a year ago stepfather from stage 4 cancer. She had lived with mother all of her life following bio parents when she was 6 years old. Mother remarried when she was in the 7th grade. Client added that at the age of 12 she entertained suicidal thoughts with plan of cutting wrists. Noted that she was not hospitalized at the time due to not telling anybody. Suicidal thoughts were a result of being angry and sad over bio father's suicide in 1997. Client further stated that following mother's 's she was easily irritated, agitated and frustrated but since she has been on medication it has gotten better. No psych admissions reported but stated following father's she saw a school counselor. Family is positive for depression(mot her).Client born and grew up in [place], [place] to parents who when she was 6 years old. Described childhood as not bad but could have been better. Stated that father was an alcoholic and was police liaison officer for many years up until his in 1997. Relationship with mother growing up was conflicted but it has gotten better the older she has become. Relationship with bio father was close, I was nikita's little girl. Client is single and has never been and has worked at [employer] for 11 years. She currently lives alone and is planning on moving to an apartment. Client is the youngest of four; two sisters and one brother. Stated that she is not close to any of her siblings. 02/22/2025 Encounter for screening for depression (ICD-10 - Z13.31) 38 year old single never female seen today for initial assessment to start therapy. Reported that she has seen Jose Brambila on two occasions for medication therapy. Client stated that this past November 71 year old mother of suspected cardiac arrest. Noted that she is the one that found mother and has had problems dealing with her . Added a year ago stepfather from stage 4 cancer. She had lived with mother all of her life following bio parents when she was 6 years old. Mother remarried when she was in the 7th grade. Client added that at the age of 12 she entertained suicidal thoughts with plan of cutting wrists. Noted that she was not hospitalized at the time due to not telling anybody. Suicidal thoughts were a result of being angry and sad over bio father's suicide in 1997. Client further stated that following mother's 's she was easily irritated, agitated and frustrated but since she has been on medication it has gotten better. No psych admissions reported but stated following father's she saw a school counselor. Family is positive for depression(mot her).Client born and grew up in [place], [place] to parents who when she was 6 years old. Described childhood as not bad but could have been better. Stated that father was an alcoholic and was police liaison officer for many years up until his in 1997. Relationship with mother growing up was conflicted but it has gotten better the older she has become. Relationship with bio father was close, I was nikita's little girl. Client is single and has never been and has worked at [employer] for 11 years. She currently lives alone and is planning on moving to an apartment. Client is the youngest of four; two sisters and one brother. Stated that she is not close to any of her siblings. 03/23/2025 Adjustment disorder with mixed anxiety and depressed mood (ICD-10 - F43.23) 38 year old single never female seen today for initial assessment to start therapy. Reported that she has seen Jose Brambila on two occasions for medication therapy. Client stated that this past November71 year old mother of suspected cardiac arrest. Noted that she is the one that found mother and has had problems dealing with her . Added a year ago stepfather from stage 4 cancer. She had lived with mother all of her life following bio parents when she was 6 years old. Mother remarried when she was in the 7th grade. Client added that at the age of 12 she entertained suicidal thoughts with plan of cutting wrists. Noted that she was not hospitalized at the time due to not telling anybody. Suicidal thoughts were a result of being angry and sad over bio father's suicide in 1997. Client further stated that following mother's 's she was easily irritated, agitated and frustrated but since she has been on medication it has gotten better. No psych admissions reported but stated following father's she saw a school counselor. Family is positive for depression(mot her).Client born and grew up in [place], [place] to parents who when she was 6 years old. Described childhood as not bad but could have been better. Stated that father was an alcoholic and was police liaison officer for many years up until his in 1997. Relationship with mother growing up was conflicted but it has gotten better the older she has become. Relationship with bio father was close, I was nikita's little girl. Client is single and has never been and has worked at [employer] for 11 years. She currently lives alone and is planning on moving to an apartment. Client is the youngest of four; two sisters and one brother. Stated that she is not close to any of her siblings. 03/23/2025 Negative depression screening (ICD-10 - Z13.31) 38 year old single never female seen today for initial assessment to start therapy. Reported that she has seen Jose Brambila on two occasions for medication therapy. Client stated that this past November69 year old mother of suspected cardiac arrest. Noted that she is the one that found mother and has had problems dealing with her . Added a year ago stepfather from stage 4 cancer. She had lived with mother all of her life following bio parents when she was 6 years old. Mother remarried when she was in the 7th grade. Client added that at the age of 12 she entertained suicidal thoughts with plan of cutting wrists. Noted that she was not hospitalized at the time due to not telling anybody. Suicidal thoughts were a result of being angry and sad over bio father's suicide in 1997. Client further stated that following mother's 's she was easily irritated, agitated and frustrated but since she has been on medication it has gotten better. No psych admissions reported but stated following father's she saw a school counselor. Family is positive for depression(mot her).Client born and grew up in [place], [place] to parents who when she was 6 years old. Described childhood as not bad but could have been better. Stated that father was an alcoholic and was police liaison officer for many years up until his in 1997. Relationship with mother growing up was conflicted but it has gotten better the older she has become. Relationship with bio father was close, I was nikita's little girl. Client is single and has never been and has worked at [employer] for 11 years. She currently lives alone and is planning on moving to an apartment. Client is the youngest of four; two sisters and one brother. Stated that she is not close to any of her siblings. 05/26/2025 Adjustment disorder with mixed anxiety and depressed mood (ICD-10 - F43.23) 38 year old single never female seen today for initial assessment to start therapy. Reported that she has seen Jose Brambila on two occasions for medication therapy. Client stated that this past November 71 year old mother of suspected cardiac arrest. Noted that she is the one that found mother and has had problems dealing with her . Added a year ago stepfather from stage 4 cancer. She had lived with mother all of her life following bio parents when she was 6 years old. Mother remarried when she was in the 7th grade. Client added that at the age of 12 she entertained suicidal thoughts with plan of cutting wrists. Noted that she was not hospitalized at the time due to not telling anybody. Suicidal thoughts were a result of being angry and sad over bio father's suicide in 1997. Client further stated that following mother's 's she was easily irritated, agitated and frustrated but since she has been on medication it has gotten better. No psych admissions reported but stated following father's she saw a school counselor. Family is positive for depression(mot her).Client born and grew up in [place], [place] to parents who when she was 6 years old. Described childhood as not bad but could have been better. Stated that father was an alcoholic and was police liaison officer for many years up until his in 1997. Relationship with mother growing up was conflicted but it has gotten better the older she has become. Relationship with bio father was close, I was nikita's little girl. Client is single and has never been and has worked at [employer] for 11 years. She currently lives alone and is planning on moving to an apartment. Client is the youngest of four; two sisters and one brother. Stated that she is not close to any of her siblings. 06/29/2025 Adjustment disorder with mixed anxiety and depressed mood (ICD-10 - F43.23) cont alprazolam 0.25mg prn she stopped Sertraline, felt too numb 06/30/2025 Adjustment disorder with mixed anxiety and depressed mood (ICD-10 - F43.23) 38 year old single never female seen today for initial assessment to start therapy. Reported that she has seen Jose Brambila on two occasions for medication therapy. Client stated that this past November 71 year old mother of suspected cardiac arrest. Noted that she is the one that found mother and has had problems dealing with her . Added a year ago stepfather from stage 4 cancer. She had lived with mother all of her life following bio parents when she was 6 years old. Mother remarried when she was in the 7th grade. Client added that at the age of 12 she entertained suicidal thoughts with plan of cutting wrists. Noted that she was not hospitalized at the time due to not telling anybody. Suicidal thoughts were a result of being angry and sad over bio father's suicide in 1997. Client further stated that following mother's 's she was easily irritated, agitated and frustrated but since she has been on medication it has gotten better. No psych admissions reported but stated following father's she saw a school counselor. Family is positive for depression(mot her).Client born and grew up in [place], [place] to parents who when she was 6 years old. Described childhood as not bad but could have been better. Stated that father was an alcoholic and was police liaison officer for many years up until his in 1997. Relationship with mother growing up was conflicted but it has gotten better the older she has become. Relationship with bio father was close, I was nikita's little girl. Client is single and has never been and has worked at [employer] for 11 years. She currently lives alone and is planning on moving to an apartment. Client is the youngest of four; two sisters and one brother. Stated that she is not close to any of her siblings. 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 Depression: - Patient reports discontinuing sertraline due to feeling numb and zombie-like. - Currently, the patient is doing well without the medication. Plan: - Monitor for any signs of depression or anxiety. - If symptoms worsen, consider restarting sertraline at a lower dose or trying an alternative medication. - Schedule a follow-up appointment in 4 months or as needed. 2. Sleep disturbance: - Patient reports sleeping 6-8 hours but not feeling rested. - Recently completed an at-home sleep study, awaiting results. Plan: - Review sleep study results once available and determine appropriate interventions based on findings. - Encourage the patient to maintain good sleep hygiene. 3. Adjustment to living alone: - Patient reports feeling lonely at times after moving out from living with Alem Alvarado. Plan: - Encourage the patient to maintain social connections and engage in activities that promote emotional well-being. - Continue monitoring the patient's adjustment to living alone during follow-up appointments. 4. Ongoing therapy: - Patient reports positive progress in therapy sessions with [facility]. Plan: - Encourage the patient to continue attending therapy sessions as needed, especially during periods of increased stress or emotional challenges. Follow-up: - Schedule a follow-up appointment in 4 months or as needed to monitor the patient's mental health and overall well-being. 02/02/2025 Adjustment disorder with mixed anxiety and depressed mood (ICD-10 - F43.23) cont alprazolam 0.25mg prn she stopped Sertraline, felt too numb 02/02/2025 Insomnia due to other mental disorder (ICD-10 - F51.05) stable 08/05/2024 Other Client participated in individual psychotherapy(C BT/Supportive) related to her adjustment problems(anxiet y and depression) related to mother's . Based on today's session continued psychotherapy is recommended with no changes to treatment plan. Client presented to session well groomed and fully oriented with no risk of harm to self or others. Client verbal engaged and tearful through out session. Reported upon presentation that she has been doing okay since last sesssion on 07.22.2024. Added she tookd day off from work with plans of going out to eat. Session addressed client wanting to end friendship with friend of many years. Her beliefs about self and how she has taught others to treat her through out her life challenged. Client tearful as she as spoke about how she has taughter others to treat her. Admitted that she has been the one that has worked the hardest in her relationships, mother and sister included. Admitted that she needs to set firm and clear boundaries with others in her life. Client receptive to session feedback. Next session in two weeks. 38 year old single never female seen today for initial assessment to start therapy. Reported that she has seen Jose Brambila on two occasions for medication therapy. Client stated that this past November 71 year old mother of suspected cardiac arrest. Noted that she is the one that found mother and has had problems dealing with her . Added a year ago stepfather from stage 4 cancer. She had lived with mother all of her life following bio parents when she was 6 years old. Mother remarried when she was in the 7th grade. Client added that at the age of 12 she entertained suicidal thoughts with plan of cutting wrists. Noted that she was not hospitalized at the time due to not telling anybody. Suicidal thoughts were a result of being angry and sad over bio father's suicide in 1997. Client further stated that following mother's 's she was easily irritated, agitated and frustrated but since she has been on medication it has gotten better. No psych admissions reported but stated following father's she saw a school counselor. Family is positive for depression(mot her).Client born and grew up in [place], [place] to parents who when she was 6 years old. Described childhood as not bad but could have been better. Stated that father was an alcoholic and was police liaison officer for many years up until his in 1997. Relationship with mother growing up was conflicted but it has gotten better the older she has become. Relationship with bio father was close, I was nikita's little girl. Client is single and has never been and has worked at [employer] for 11 years. She currently lives alone and is planning on moving to an apartment. Client is the youngest of four; two sisters and one brother. Stated that she is not close to any of her siblings. 09/02/2024 Other Client participated in individual psychotherapy(C BT/Supportive) due to adjustment disorder with anxiety and depression related to of mother. Based on today's session continued psychotherapy is recommended with no changes to treatment plan. Client presented to session well groomed and fully oriented with no risk of harm to self and others. Client verbal and engaged through out session. Reported upon presentation that she has been good since last seen on 08.05.2024. However added that she has been having more crying spells the closer the Holidays get. Spoke at length about how this will be the first time celebrating holidays without her mother. Session accordingly addressed client's relationship with mother while growing up. Admitted that mother at times was hard to love due to her personality. Recalled that mother never told her that she loved her while she was growing up. It was not until her stepfather that mother started telling her that she loved her. Client provided supportive therapy. Next session in two weeks. 38 year old single never female seen today for initial assessment to start therapy. Reported that she has seen Jose Brambila on two occasions for medication therapy. Client stated that this past November 71 year old mother of suspected cardiac arrest. Noted that she is the one that found mother and has had problems dealing with her . Added a year ago stepfather from stage 4 cancer. She had lived with mother all of her life following bio parents when she was 6 years old. Mother remarried when she was in the 7th grade. Client added that at the age of 12 she entertained suicidal thoughts with plan of cutting wrists. Noted that she was not hospitalized at the time due to not telling anybody. Suicidal thoughts were a result of being angry and sad over bio father's suicide in 1997. Client further stated that following mother's 's she was easily irritated, agitated and frustrated but since she has been on medication it has gotten better. No psych admissions reported but stated following father's she saw a school counselor. Family is positive for depression(mot her).Client born and grew up in [place], [place] to parents who when she was 6 years old. Described childhood as not bad but could have been better. Stated that father was an alcoholic and was police liaison officer for many years up until his in 1997. Relationship with mother growing up was conflicted but it has gotten better the older she has become. Relationship with bio father was close, I was nikita's little girl. Client is single and has never been and has worked at [employer] for 11 years. She currently lives alone and is planning on moving to an apartment. Client is the youngest of four; two sisters and one brother. Stated that she is not close to any of her siblings. 09/16/2024 Other Client particpated in individual psychotherapy (CBT/Supportive ) related to her adjustement disorder related to of mother. Based on today's session continued psychotherapy is recommended with no changes to treatment plan. Client presented to session well groomed and fully oriented with no risk of harm to self or others. Client verbal and engaged through out session with appropriate mood and affect. Client verbal and engaged through out session. Reported upon presentation that she has been really good since last seen on 08.28.2024. Added that everything is going good; work and home life. Noted that she and sister have been communicating more. Believes she is in a good place with no anxiety and depression symptoms. Client provided supportive therapy and encouragement to keep doing what is working for her. Next session in two weeks. 38 year old single never female seen today for initial assessment to start therapy. Reported that she has seen Jose Brambila on two occasions for medication therapy. Client stated that this past November 71 year old mother of suspected cardiac arrest. Noted that she is the one that found mother and has had problems dealing with her . Added a year ago stepfather from stage 4 cancer. She had lived with mother all of her life following bio parents when she was 6 years old. Mother remarried when she was in the 7th grade. Client added that at the age of 12 she entertained suicidal thoughts with plan of cutting wrists. Noted that she was not hospitalized at the time due to not telling anybody. Suicidal thoughts were a result of being angry and sad over bio father's suicide in 1997. Client further stated that following mother's 's she was easily irritated, agitated and frustrated but since she has been on medication it has gotten better. No psych admissions reported but stated following father's she saw a school counselor. Family is positive for depression(mot her).Client born and grew up in [place], [place] to parents who when she was 6 years old. Described childhood as not bad but could have been better. Stated that father was an alcoholic and was police liaison officer for many years up until his in 1997. Relationship with mother growing up was conflicted but it has gotten better the older she has become. Relationship with bio father was close, I was nikita's little girl. Client is single and has never been and has worked at [employer] for 11 years. She currently lives alone and is planning on moving to an apartment. Client is the youngest of four; two sisters and one brother. Stated that she is not close to any of her siblings. 01/10/2025 Other Clinical Notes : Client particpated in individual psychotherapy (CBT/Supportive ) related to her adjustement disorder related to of mother. Based on today's session continued psychotherapy is recommended with no changes to treatment plan. Client presented to session well groomed and fully oriented with no risk of harm to self or others. Client verbal and engaged through out session with appropriate mood and affect. . Reported upon presentation that she has been good since last seen on 09.16.2024 and has a a few bad days. One of the days due to missing mother a week before her birthday. Believes however that she has been told that she is getting back to her old self before mother's passing. Work has been okay as well although did get a talking to from her boss due to how she spoke with a customer. Noted that she did not get written up but just the talking to. Added that she needed to have stayed quiet and not engage the customer. Believes she is good overall and looking forward to Spring as she is tired of the cold. Client provided with supportive therapy. Next session in four weeks. 38 year old single never female seen today for initial assessment to start therapy. Reported that she has seen Jose Brambila on two occasions for medication therapy. Client stated that this past November 71 year old mother of suspected cardiac arrest. Noted that she is the one that found mother and has had problems dealing with her . Added a year ago stepfather from stage 4 cancer. She had lived with mother all of her life following bio parents when she was 6 years old. Mother remarried when she was in the 7th grade. Client added that at the age of 12 she entertained suicidal thoughts with plan of cutting wrists. Noted that she was not hospitalized at the time due to not telling anybody. Suicidal thoughts were a result of being angry and sad over bio father's suicide in 1997. Client further stated that following mother's 's she was easily irritated, agitated and frustrated but since she has been on medication it has gotten better. No psych admissions reported but stated following father's she saw a school counselor. Family is positive for depression(mot her).Client born and grew up in [place], [place] to parents who when she was 6 years old. Described childhood as not bad but could have been better. Stated that father was an alcoholic and was police liaison officer for many years up until his in 1997. Relationship with mother growing up was conflicted but it has gotten better the older she has become. Relationship with bio father was close, I was nikita's little girl. Client is single and has never been and has worked at [employer] for 11 years. She currently lives alone and is planning on moving to an apartment. Client is the youngest of four; two sisters and one brother. Stated that she is not close to any of her siblings. 02/02/2025 Other Korin Montes, female patient with history of depression and anxiety, presents for follow-up with improved mood and occasional work-related stress. Depression Assessment: Patient reports improvement in depressive symptoms. She denies current depression and states feeling out of the fog. Patient has successfully navigated potentially difficult periods such as her mother's birthday, [place], and the anniversary of her mother's passing without significant mood disturbance. Previously prescribed sertraline was discontinued due to emotional numbing, and patient is currently managing well without antidepressant medication. Plan: - Continue current management without antidepressant medication - Maintain ongoing counseling sessions - Follow up in 6 months for reassessment Anxiety Assessment: Patient reports occasional anxiety related to work stressors, including increased workload due to staff shortages. She uses as-needed alprazolam for overwhelming days, reporting use 2-3 times in the past 2 months with good effect. Sleep disturbances are noted, with patient reporting difficulty unwinding after work and occasional late-night activities. Plan: - Continue alprazolam as needed for severe anxiety - Encourage stress-reductio n techniques and proper sleep hygiene - Follow up in 6 months for reassessment the note is transcribed using speech recognition software. It is a reflection of a visit with the patient. It might have some inaccuracy, including medication names and transcribing errors, though efforts have been made to correct them. 02/22/2025 Other Clinical Notes : Clinical Notes: Client particpated in individual psychotherapy (CBT/Supportive ) related to her adjustement disorder related to of mother. Based on today's session continued psychotherapy is recommended with no changes to treatment plan. Client presented to session well groomed and fully oriented with no risk of harm to self or others. Client verbal and engaged through out session with appropriate mood and affect. . Reported upon presentation that she has been so -so since last seen on 01.10.2025. Added that she was recently given a 30 day notice to find another place to live as her current landlord is selling apartment building she currently lives in. Noted that she has mixed feelings about moving after not even a year where she is at. Sister has asked to her find a place close to her and her family if at all possible. Client added that she and sister's relationship has gotten better much to her surprise. Work going well inspite of hours having been cut. Further shared that she does not regret having cut out long time from her life due to her negativity. Noted that friend reminded her a lot of her mother when she was alive. She looking forward to spending time with her family. Believes she is in a good place. Next session in four weeks. 38 year old single never female seen today for initial assessment to start therapy. Reported that she has seen Jose Brambila on two occasions for medication therapy. Client stated that this past November 71 year old mother of suspected cardiac arrest. Noted that she is the one that found mother and has had problems dealing with her . Added a year ago stepfather from stage 4 cancer. She had lived with mother all of her life following bio parents when she was 6 years old. Mother remarried when she was in the 7th grade. Client added that at the age of 12 she entertained suicidal thoughts with plan of cutting wrists. Noted that she was not hospitalized at the time due to not telling anybody. Suicidal thoughts were a result of being angry and sad over bio father's suicide in 1997. Client further stated that following mother's 's she was easily irritated, agitated and frustrated but since she has been on medication it has gotten better. No psych admissions reported but stated following father's she saw a school counselor. Family is positive for depression(mot her).Client born and grew up in [place], [place] to parents who when she was 6 years old. Described childhood as not bad but could have been better. Stated that father was an alcoholic and was police liaison officer for many years up until his in 1997. Relationship with mother growing up was conflicted but it has gotten better the older she has become. Relationship with bio father was close, I was nikita's little girl. Client is single and has never been and has worked at [employer] for 11 years. She currently lives alone and is planning on moving to an apartment. Client is the youngest of four; two sisters and one brother. Stated that she is not close to any of her siblings. 03/23/2025 Other Client particpated in individual psychotherapy (CBT/Supportive ) related to her adjustement disorder related to of mother. Based on today's session continued psychotherapy is recommended with no changes to treatment plan. Client presented to session well groomed and fully oriented with no risk of harm to self or others. Client verbal and engaged through out session with appropriate mood and affect. Reported upon presentation that she has been doing okay since last seen on 02.22.2025. Added that she has yet to find an apartment but was given another 30 days by her current landlord. Stated that sister wants her to stay near her and her family. Client concerned that sister wants to take the place of their mother and tell her what to do just like her mother did. Client encouraged to be honest with sister that she needs to do what is best for her but that she appreciates sister's concern. Client admitted that sister did not think she would be able to live on her own. Noted that she is proud of self for having been able to live on her own with very little trouble. Believes she has grown a lot since mother's . Client receptive to session feedback. Next session in four weeks. 38 year old single never female seen today for initial assessment to start therapy. Reported that she has seen Jose Brambila on two occasions for medication therapy. Client stated that this past November 71 year old mother of suspected cardiac arrest. Noted that she is the one that found mother and has had problems dealing with her . Added a year ago stepfather from stage 4 cancer. She had lived with mother all of her life following bio parents when she was 6 years old. Mother remarried when she was in the 7th grade. Client added that at the age of 12 she entertained suicidal thoughts with plan of cutting wrists. Noted that she was not hospitalized at the time due to not telling anybody. Suicidal thoughts were a result of being angry and sad over bio father's suicide in 1997. Client further stated that following mother's 's she was easily irritated, agitated and frustrated but since she has been on medication it has gotten better. No psych admissions reported but stated following father's she saw a school counselor. Family is positive for depression(mot her).Client born and grew up in [place], [place] to parents who when she was 6 years old. Described childhood as not bad but could have been better. Stated that father was an alcoholic and was police liaison officer for many years up until his in 1997. Relationship with mother growing up was conflicted but it has gotten better the older she has become. Relationship with bio father was close, I was nikita's little girl. Client is single and has never been and has worked at [employer] for 11 years. She currently lives alone and is planning on moving to an apartment. Client is the youngest of four; two sisters and one brother. Stated that she is not close to any of her siblings. 05/26/2025 Other Client particpated in individual psychotherapy (CBT/Supportive ) related to her adjustement disorder related to of mother. Based on today's session continued psychotherapy is recommended with no changes to treatment plan. Client presented to session well groomed and fully oriented with no risk of harm to self or others. Client verbal and engaged through out session with appropriate mood and affect. Reported upon presentation that she has been good since last seen on 03.23.2025. Added that she found a place to live but had to live with sister and her family for a few weeks. Noted that new place is smaller then former apartment but likes it and already feels comfortable there. Sister glad that she is closer to her then she used to be and her nieces also glad that she is closer. Work going well but her hours have been cut due to protests agains [employer]. 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 Client further shared that she has been focused on not living in the past anymore and being in the present. Believes she is in much better place. Next session in four weeks. 38 year old single never female seen today for initial assessment to start therapy. Reported that she has seen Jose Brambila on two occasions for medication therapy. Client stated that this past November 71 year old mother of suspected cardiac arrest. Noted that she is the one that found mother and has had problems dealing with her . Added a year ago stepfather from stage 4 cancer. She had lived with mother all of her life following bio parents when she was 6 years old. Mother remarried when she was in the 7th grade. Client added that at the age of 12 she entertained suicidal thoughts with plan of cutting wrists. Noted that she was not hospitalized at the time due to not telling anybody. Suicidal thoughts were a result of being angry and sad over bio father's suicide in 1997. Client further stated that following mother's 's she was easily irritated, agitated and frustrated but since she has been on medication it has gotten better. No psych admissions reported but stated following father's she saw a school counselor. Family is positive for depression(mot her).Client born and grew up in [place] to parents who when she was 6 years old. Described childhood as not bad but could have been better. Stated that father was an alcoholic and was police liaison officer for many years up until his in 1997. Relationship with mother growing up was conflicted but it has gotten better the older she has become. Relationship with bio father was close, I was nikita's little girl. Client is single and has never been and has worked at [employer] for 11 years. She currently lives alone and is planning on moving to an apartment. Client is the youngest of four; two sisters and one brother. Stated that she is not close to any of her siblings. 06/29/2025 Other Korin Montes, a full-time worker, presents with work-related stress and anxiety, reporting feeling overwhelmed since March and experiencing worsening symptoms. Work-related stress and anxiety Assessment: Patient reports significant work-related stress that began in March and has progressively worsened. She describes feeling overwhelmed, experiencing difficulty getting out of bed on workdays, and increased job responsibilities due to staff shortages. The patient's symptoms appear to be directly related to her work environment, as she reports feeling fine on her days off. Previously, the patient was prescribed Sertraline 100mg, which was discontinued due to emotional numbing. She currently has alprazolam for as-needed use. Plan: - Start Sertraline 25mg PO daily - Follow up in one month to assess efficacy and consider dose adjustment - Continue alprazolam as needed for anxiety - Patient to self-monitor symptoms and report if increase in dose is needed before next appointment the note is transcribed using speech recognition software. It is a reflection of a visit with the patient. It might have some inaccuracy, including medication names and transcribing errors, though efforts have been made to correct them. 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 Based on today's session continued psychotherapy is recommended with no changes to treatment plan. Client presented to session well groomed and fully oriented with no risk of harm to self or others. Client verbal, engaged and tearful through out session. Reported upon presentation that she has been stressed since last seen on 05.26.2025. 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 Client admitted that she has been worried about being fired inspite of always having glowing evaluations and no evidence that hints at being fired. Noted that managment always depend on her when she is working to help close. Session accordingly helped client examine and replace distorted and irrational thoughts and beliefs responsible for her stress and worry. Client introduced to The Four Agreements by Dwight aMn. Client conceded that she needs to stay away from emotional reasoning while balancing emotions with logic. Client receptive to session feedback. Next session in four weeks. 38 year old single never female seen today for initial assessment to start therapy. Reported that she has seen Jose Brambila on two occasions for medication therapy. Client stated that this past November 71 year old mother of suspected cardiac arrest. Noted that she is the one that found mother and has had problems dealing with her . Added a year ago stepfather from stage 4 cancer. She had lived with mother all of her life following bio parents when she was 6 years old. Mother remarried when she was in the 7th grade. Client added that at the age of 12 she entertained suicidal thoughts with plan of cutting wrists. Noted that she was not hospitalized at the time due to not telling anybody. Suicidal thoughts were a result of being angry and sad over bio father's suicide in 1997. Client further stated that following mother's 's she was easily irritated, agitated and frustrated but since she has been on medication it has gotten better. No psych admissions reported but stated following father's she saw a school counselor. Family is positive for depression(mot her).Client born and grew up in [place], [place] to parents who when she was 6 years old. Described childhood as not bad but could have been better. Stated that father was an alcoholic and was police liaison officer for many years up until his in 1997. Relationship with mother growing up was conflicted but it has gotten better the older she has become. Relationship with bio father was close, I was nikita's little girl. Client is single and has never been and has worked at [employer] for 11 years. She currently lives alone and is planning on moving to an apartment. Client is the youngest of four; two sisters and one brother. Stated that she is not close to any of her siblings. Plan Of Treatment Next Appt Details Provider Name:Jose Liliana zimmer, 07/28/2025 03:30:00 PM, [address], [address], [place], [address], Insurance Providers Payer Name Payer Address Payer Phone Subscriber Number Group Number Insured Name Patient Relationship to Insured Coverage Start Date Coverage End Date [facility] Ppo [address] [place] [address] [id number] KORIN MONTES Self - patient is the insured Medical (General) History Medical History History ICD Code Problems: Adjustment disorder with mixed anxiety and depressed mood 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
== END 2025-07-28 12:57 | disposition home or self-care (01) ==
PROVIDERS: PCP Family Medicine; Visit Provider Family Medicine
DX: E04.2 Nontoxic multinodular goiter (principal)
CPT/HCPCS: 76536

== ENCOUNTER 2025-08-01 08:06 | Emergency (ER) | payer OTHER, BC, SELFPAY ==
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
[2025-08-01 08:12] VITALS: BP 141/87; PULSE 106; RESP 16; TEMP 36.8; O2SAT 97
--- OUTSIDE RECORDS SUMMARY | 2025-08-01 08:31 | XMS_ITS | Patient Health Record ---
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 Name Role Phone Say Shaffer MD Primary Care Provider Jose Chavez Unavailable [phone] Myke Christy Unavailable [phone] Allergies No Known Allergies Reason For Referral No Information Medications Medication SIG (Take, Route, Frequency, Duration) Notes Start Date End Date Status Sertraline HCl 100 MG Tablet TAKE 1 TABLET BY MOUTH EVERY DAY FOR 90 DAYS Oral; Duration: 90 Days Not-Taki ng ALPRAZolam 0.25 MG Tablet Oral 03/05/2024 Not-Taking Social History Tobacco Use: Social History Observation Description Date Details (start date - stop date) Never Smoker NA - NA Sex Assigned At : Social History Observation Description Sex Assigned At Female Social History Miscellaneous: Social Info Question Answer Notes Advance Care Planning Are you your own decision-maker Yes Do you have 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 No Drug/Alcohol: Social Info Question Answer Notes [...] disorder with mixed anxiety and depressed mood (210200581) Adjustment disorder with mixed anxiety and depressed mood (F43.23) Active confirmed Problem Insomnia disorder related to another mental disorder (76001829) Insomnia due to other mental disorder (F51.05) Active confirmed Vital Signs Heart Rate 87 /min 07/28/2025 Height-cm 167.64 cm 07/28/2025 Blood pressure diastolic 78 mm Hg 07/28/2025 Weight-kg 104.78 kg 07/28/2025 Height 66 in 07/28/2025 Blood pressure systolic 112 mm Hg 07/28/2025 Weight 231 lbs 07/28/2025 BMI 37.28 kg/m2 07/28/2025 Encounters Encounter Location Date Provider Diagnosis [place] [address] [facility] [address] [place] [address] 08/05/2024 Myke Christy Adjustment disorder with mixed anxiety and depressed mood F43.23 [facility] [address] [address] 09/02/2024 Myke Christy Adjustment disorder with mixed anxiety and depressed mood F43.23 [facility][MD[facility] [address] [address] 09/16/2024 Myke Christy Adjustment disorder with mixed anxiety and depressed mood F43.23 [facility]MD[facility] [address] [address] 10/05/2024 Jose Brambila Adjustment disorder with mixed anxiety and depressed mood F43.23 and Insomnia due to other mental disorder F51.05 [facility] [address] [address] 01/10/2025 Myke Christy Situational mixed anxiety and depressive disorder F43.23 [facility]MD[facility] [address] [address] 02/02/2025 Jose Brambila Encounter for screen ing for cardiovascular disorders Z13.6 ; Encounter for screening for depression Z13.31 ; Adjustment disorder with mixed anxiety and depressed mood F43.23 and Insomnia due to other mental disorder F51.05 [facility]MD[facility] [address] [facility] [address] [place] [address] 02/22/2025 Myke Christy Encounter for screen ing for depression Z13.31 and Adjustment disorder with mixed anxiety and depressed mood F43.23 [facility]MD[facility] [address] [facility] [address] [place] [address] 03/23/2025 Myke Christy Negative depression screening Z13.31 and Adjustment disorder with mixed anxiety and depressed mood F43.23 [place] [address] [place] [address] 05/26/2025 Myke Christy Adjustment disorder with mixed anxiety and depressed mood F43.23 [place] [address] [place] [address] 06/29/2025 Jose Brambila Adjustment disorder with mixed anxiety and depressed mood F43.23 and Insomnia due to other mental disorder F51.05 [place] [address] [place] [address] 06/30/2025 Myke Christy Adjustment disorder with mixed anxiety and depressed mood F43.[address] [facility] [address] [place] [address] 07/28/2025 Jose Brambila Adjustment disorder with mixed anxiety and depressed mood F43.23 and Insomnia due to other mental disorder F51.05 Assessments Encounter Date Diagnosis (ICD Code) Assessment Notes Treatment Notes Treatment Clinical Notes Section Notes 08/05/2024 Adjustment disorder with mixed anxiety and depressed mood (ICD-10 - F43.23) 38 year old single never female seen today for initial assessment to start therapy. Reported that she has seen Jose Brmabila on two occasions for medication therapy. Client [...] depression(mot her).Client born and grew up in [place] to parents who when she was 6 years old. Described childhood as not bad but could have been better. Stated that father was an alcoholic and was chief of safety and protection for many years up until his in 1997. Relationship with mother growing up was conflicted but it has gotten better the older she has become. Relationship with bio father was close, I was nikita's little girl. Client is single and has never been and has worked at [employer] for 11 years. She currently lives alone [...] depression(mot her).Client born and grew up in [place] to parents who when she was 6 years old. Described childhood as not bad but could have been better. Stated that father was an alcoholic and was chief of safety and protection for many years up until his in [...] depression(mot her).Client born and grew up in [place] to parents who when she was 6 years old. Described childhood as not bad but could have been better. Stated that father was an alcoholic and was chief of safety and protection for many years up until his in [...] depression(mot her).Client born and grew up in [place] to parents who when she was 6 years old. Described childhood as not bad but could have been better. Stated that father was an alcoholic and was chief of safety and protection for many years up until his in 1997. Relationship with mother growing up was conflicted but it has gotten better the older she has become. Relationship with bio father was close, I was nikita's little girl. Client is single and has never been and has worked at [employer] for 11 years. She currently lives alone [...] depression(mot her).Client born and grew up in [place] to parents who when she was 6 years old. Described childhood as not bad but could have been better. Stated that father was an alcoholic and was chief of safety and protection for many years up until his in [...] depression(mot her).Client born and grew up in [place] to parents who when she was 6 years old. Described childhood as not bad but could have been better. Stated that father was an alcoholic and was chief of safety and protection for many years up until his in [...] depression(mot her).Client born and grew up in [place] to parents who when she was 6 years old. Described childhood as not bad but could have been better. Stated that father was an alcoholic and was chief of safety and protection for many years up until his in 1997. Relationship with mother growing up was conflicted but it has gotten better the older she has become. Relationship with bio father was close, I was nikita's little girl. Client is single and has never been and has worked at [employer] for 11 years. She currently lives alone [...] depression(mot her).Client born and grew up in [place] to parents who when she was 6 years old. Described childhood as not bad but could have been better. Stated that father was an alcoholic and was chief of safety and protection for many years up until his in 1997. Relationship with mother growing up was conflicted but it has gotten better the older she has become. Relationship with bio father was close, I was nikita's little girl. Client is single and has never been and has worked at [employer] for 11 years. She currently lives alone [...] depression(mot her).Client born and grew up in [place] to parents who when she was 6 years old. Described childhood as not bad but could have been better. Stated that father was an alcoholic and was chief of safety and protection for many years up until his in 1997. Relationship with mother growing up was conflicted but it has gotten better the older she has become. Relationship with bio father was close, I was nikita's little girl. Client is single and has never been and has worked at [employer] for 11 years. She currently lives alone [...] depression(mot her).Client born and grew up in [place] to parents who when she was 6 years old. Described childhood as not bad but could have been better. Stated that father was an alcoholic and was chief of safety and protection for many years up until his in 1997. Relationship with mother growing up was conflicted but it has gotten better the older she has become. Relationship with bio father was close, I was nikita's little girl. Client is single and has never been and has worked at [employer] for 11 years. She currently lives alone and is planning on moving to an apartment. Client is the youngest of four; two sisters and one brother. Stated that she is not close to any of her siblings. 07/28/2025 Adjustment disorder with mixed anxiety and depressed mood (ICD-10 - F43.23) cont alprazolam 0.25mg prn she stopped Sertraline 07/28/2025 Insomnia due to other mental disorder (ICD-10 - F51.05) stable 06/29/2025 Insomnia due to other mental disorder [...] depression(mot her).Client born and grew up in [place] to parents who when she was 6 years old. Described childhood as not bad but could have been better. Stated that father was an alcoholic and was chief of safety and protection for many years up until his in 1997. Relationship with mother growing up was conflicted but it has gotten better the older she has become. Relationship with bio father was close, I was nikita's little girl. Client is single and has never been and has worked at [employer] for 11 years. She currently lives alone [...] depression(mot her).Client born and grew up in [place] to parents who when she was 6 years old. Described childhood as not bad but could have been better. Stated that father was an alcoholic and was chief of safety and protection for many years up until his in 1997. Relationship with mother growing up was conflicted but it has gotten better the older she has become. Relationship with bio father was close, I was nikita's little girl. Client is single and has never been and has worked at [employer] for 11 years. She currently lives alone [...] depression(mot her).Client born and grew up in [place] to parents who when she was 6 years old. Described childhood as not bad but could have been better. Stated that father was an alcoholic and was chief of safety and protection for many years up until his in 1997. Relationship with mother growing up was conflicted but it has gotten better the older she has become. Relationship with bio father was close, I was nikita's little girl. Client is single and has never been and has worked at [employer] for 11 years. She currently lives alone [...] depression(mot her).Client born and grew up in [place] to parents who when she was 6 years old. Described childhood as not bad but could have been better. Stated that father was an alcoholic and was chief of safety and protection for many years up until his in 1997. Relationship with mother growing up was conflicted but it has gotten better the older she has become. Relationship with bio father was close, I was nikita's little girl. Client is single and has never been and has worked at [employer] for 11 years. She currently lives alone [...] difficult periods such as her mother's birthday, [place], and the anniversary of her mother's passing [...] depression(mot her).Client born and grew up in [place] to parents who when she was 6 years old. Described childhood as not bad but could have been better. Stated that father was an alcoholic and was chief of safety and protection for many years up until his in [...] depression(mot her).Client born and grew up in [place] to parents who when she was 6 years old. Described childhood as not bad but could have been better. Stated that father was an alcoholic and was chief of safety and protection for many years up until his in [...] depression(mot her).Client born and grew up in [place] to parents who when she was 6 years old. Described childhood as not bad but could have been better. Stated that father was an alcoholic and was chief of safety and protection for many years up until his in 1997. Relationship with mother growing up was conflicted but it has gotten better the older she has become. Relationship with bio father was close, I was nikita's little girl. Client is single and has never been and has worked at [employer] for 11 years. 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 Client conceded that she needs to stay [...] depression(mot her).Client born and grew up in [place] to parents who when she was 6 years old. Described childhood as not bad but could have been better. Stated that father was an alcoholic and was chief of safety and protection for many years up until his in 1997. Relationship with mother growing up was conflicted but it has gotten better the older she has become. Relationship with bio father was close, I was daddahlia's little girl. Client is single and has never been and has worked at [employer] for 11 years. She currently lives alone and is planning on moving to an apartment. Client is the youngest of four; two sisters and one brother. Stated that she is not close to any of her siblings. 07/28/2025 Other Korin Montes, female patient with history of thyroid issues, presents for follow-up of depression and anxiety, reporting recent improvement in mood and discontinuation of medication. Depression and Anxiety Assessment: Patient reports recent improvement in mood and feeling kind of normal after discontinuing medication for a few days. She acknowledges still having a long way to go and anticipates future difficult days. Sleep disturbances persist, but patient attributes this to possible thyroid issues. Patient expresses desire to continue without medication and monitor symptoms. Plan: - Discontinue current antidepressant medication (patient self-discontinued ) - Monitor symptoms without medication - Follow-up appointment in 2 months - Patient instructed to schedule earlier appointment if symptoms worsen Thyroid Issues Assessment: Patient reports ongoing thyroid issues since last year, including goiter and nodules. Recent ultrasound performed today, awaiting results. Dr. Okeefe monitoring for potential growth of thyroid abnormalities. Plan: - Await results of recent thyroid ultrasound - Continue follow-up with Dr. Okeefe for thyroid management the note is transcribed using speech recognition software. It is a reflection of a visit with the patient. It might have some inaccuracy, including medication names and transcribing errors, though efforts have been made to correct them. 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
[2025-08-01 10:16] VITALS: BP 132/80; PULSE 100; RESP 15; O2SAT 100
[2025-08-01] MEDS: HYDROcodone/acetaminophen (*CRX) 5-325 MG TABLET 1 TAB PO (10:16)
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
[2025-08-01] MEDS: ACETAMINOPHEN 500 MG TABLET 1000 MG PO (11:58)
[2025-08-01] MEDS: PROCHLORPERAZINE EDISYLATE 10 MG/2 ML VIAL 5 MG IV PUSH (11:59)
[2025-08-01] MEDS: KETOROLAC 15 MG/ML VIAL (*BKC) IV PUSH (12:02)
[2025-08-01 12:07] VITALS: BP 114/88; PULSE 76; RESP 15; O2SAT 100
[2025-08-01 12:12] LABS: BEDSIDEPREGUCG Negative (Negative)
[2025-08-01 12:23] LABS: Add Urine Microscopic? YES; Appearance Urine Clear (Clear); Glucose Urine UA Negative (Negative); Leukocyte Esterase Ur Trace LEU/UL (Negative); Nitrate Urine Negative (Negative); Non Pathogenic Casts 0-2; Specific Grav Ur 1.008 (1.001-1.035)
[2025-08-01 13:07] LABS: Estimated CRCL calculation 112 ml/min; Estimated Glomerular Filt Rate > 60
[2025-08-01 13:57] VITALS: BP 115/69; PULSE 85; RESP 15; O2SAT 100
[2025-08-01 14:20] VITALS: BP 138/84; PULSE 80; RESP 16; O2SAT 98
== END 2025-08-01 14:45 | disposition home or self-care (01) ==
PROVIDERS: Emergency Provider Student in an Organized Health Care Education/Training Program; PCP Family Medicine
DX: S06.0X0A Concussion without loss of consciousness, initial encounter (principal); S50.11XA Contusion of right forearm, initial encounter; S30.1XXA Contusion of abdominal wall, initial encounter; E04.2 Nontoxic multinodular goiter; M25.511 Pain in right shoulder; V43.52XA Car driver injured in collision with other type car in traffic accident, initial encounter
CPT/HCPCS: 70450; 71260; 72125; 73030; 73090; 74177; 81001; 81025; 96374; 96375; 99284; A9270; J0780; J1200; J1885; Q9967